=== PATIENT | female | born 1945 | race Caucasian/White ===

== ENCOUNTER → 2017-03-07 | Outpatient (CLI) | payer MEDICARE ==
[~2017-03-07] MED LIST: AMLODIPINE BESYL5 MG PO; LIPITOR PO; LOSARTAN PO; LOVAZA1 G PO; METFORMIN HCL500 M1 PO; NORCO1 TAB 10/3 PO; ZOFRAN ODT4 MG/UDTAB PO
--- NOTE | ~2017-03-07 | CR170 ---
[facility] A Service [facility] RADIOLOGY TEXT RESULTS PATIENT: HOMER BAUTISTA LOCATION: [facility] : 49 UNIT #: [id number] AGE: [address]: Cammy Workman MD SEX: F ORDER DR: [id number] [place] [id number] O MR#: [id number] Acc #: [id number] NAME: HOMER BAUTISTA : 1945 SEX: F STUDY DATE/TIME: 03/07/2017 10:44 UNIT: SRA ROOM: STUDY DESCRIPTION: CR Knee 2 Views Rt Attending Physician: Cammy Workman M.D. Referring Physician: Cammy Workman M.D. Ordering Physician: Cammy Workman M.D. Primary Care Physician: Cammy Workman M.D. MEDICAL IMAGING REPORT This report is preliminary unless electronic signature is present. EXAM Right knee 03/07/2017 HISTORY 71-year-old female with right knee pain for 2-3 months, worsening over last 1 week. No specific injury. COMPARISON None FINDINGS 2 views of the right knee demonstrate no acute fracture or dislocation. No joint effusion. Mild degenerative changes of the patellofemoral joint. Medial and lateral compartment joint spaces are maintained. Soft tissues are unremarkable. IMPRESSION 1. No acute fracture or dislocation. 2. Mild patellofemoral arthrosis. 3. If clinical symptoms persist, consider further evaluation with nonemergent right knee MRI. Dictated by... Cristóbal Singh M.D. THIS IS AN ELECTRONICALLY VERIFIED REPORT Cristóbal Singh M.D. at 03/07/2017 6:38 PM Leonardo TD: 03/07/2017 18:31 JOB #: [id number] [facility] A Service [facility] RADIOLOGY TEXT RESULTS PATIENT: HOMER BAUTISTA LOCATION: [facility] : 49 UNIT #: [id number] AGE: [address]: Cammy Workman MD SEX: F ORDER DR: MEDICAL IMAGING REPORT Page 1 of 1
== END | disposition home or self-care (01) ==
LOC: SRAD 10:33
DX: M25.561 Pain in right knee (principal); M17.11 Unilateral primary osteoarthritis, right knee
CPT/HCPCS: 73560

== ENCOUNTER → 2017-05-08 | Outpatient (CLI) | payer MEDICARE ==
--- NOTE | ~2017-05-08 | BD1 ---
[facility] A Service of [facility] & [facility] RADIOLOGY TEXT RESULTS PATIENT: HOMER BAUTISTA LOCATION: [facility] : 49 UNIT #: [id number] AGE: [address]: Cammy Workman MD SEX: F ORDER DR: [id number] [place] [id number] O MR#: [id number] Acc #: [id number] NAME: HOMER BAUTISTA : 1945 SEX: F STUDY DATE/TIME: 05/08/2017 10:18 UNIT: [facility] ROOM: STUDY DESCRIPTION: Dexa Bone Dens 1+ Site Attending Physician: Cammy Workman M.D. Referring Physician: Cammy Workman M.D. Ordering Physician: Cammy Workman M.D. Primary Care Physician: Cammy Workman M.D. MEDICAL IMAGING REPORT This report is preliminary unless electronic signature is present. EXAM Bone density spine and hip, 05/08/2017 HISTORY Screening. Prior wrist bone fracture. Nonsmoker. FINDINGS Bone density scanning performed upper four lumbar vertebral segments and both proximal femurs [age]-year-old 173 pound female COMPARISON 11/27/2009 FINDINGS Bone mineral density upper four lumbar vertebral segments 1.235 g/cm2 for T-score 0.5 standard deviations above the mean and Z-score 1.7 standard deviations above the mean. Compared to 11/27/2009, there has been a statistically significant 9.7% increase in bone mineral density in this region. In the proximal left femur the total bone mineral density is 0.886 g/cm2 for T-score 1.0 standard deviation below mean for reference population normal young individuals and Z-score 0.2 standard deviations above the mean for age-matched population. In the left femoral neck specifically the bone mineral density is 0.820 g/cm2 for T-score 1.6 standard deviations below mean for reference population normal young individuals and Z-score 0.2 standard deviations below mean for age-matched population. In the proximal right femur the total bone mineral density is 0.922 g/cm2 for a T-score of 0.7 standard deviation below mean for reference population normal young individuals and Z-score 0.4 standard deviations above the mean for age-matched population. In the right femoral neck specifically the bone mineral density is 0.840 g/cm2 for T-score 1.4 [facility] A Service of [facility] & [facility] RADIOLOGY TEXT RESULTS PATIENT: HOMER BAUTISTA LOCATION: [facility] : 49 UNIT #: [id number] AGE: [address]: Cammy Workman MD SEX: F ORDER DR: standard deviation below mean for reference population normal young individuals and Z-score 0 standard deviations from the mean for an age-matched population. Using total bone mineral density in the bilateral proximal femurs there has been a statistically significant 4.3% decrease in left femoral bone mineral density. On prior examination 2009, the right femur was not evaluated. IMPRESSION 1. Osteopenia in the left femoral neck. Patient felt to be at increased risk for fracture. Treatment options may be considered. Continued surveillance is recommended. 2. Statistically significant increase in overall bone mineral density upper 4 lumbar vertebral segments compared to 2010. Statistically significant decrease in proximal left femoral bone mineral density compared to 2010. See complete data in body of report above. Dictated by... James Guajardo M.D. THIS IS AN ELECTRONICALLY VERIFIED REPORT James Guajardo M.D. at 05/10/2017 11:34 AM Seema TD: 05/09/2017 05:09 JOB #: [id number] MEDICAL IMAGING REPORT Page 1 of 1
--- NOTE | ~2017-05-08 | MY11 ---
[facility] A Service of [facility] RADIOLOGY TEXT RESULTS PATIENT: HOMER BAUTISTA LOCATION: [facility] : 49 UNIT #: [id number] AGE: [address]: Cammy Workman MD SEX: F ORDER DR: [id number] [address] [address] [id number] O MR#: [id number] Acc #: [id number] NAME: HOMER BAUTISTA : 1945 SEX: F STUDY DATE/TIME: 05/08/2017 10:47 UNIT: [facility] ROOM: STUDY DESCRIPTION: MY Mammogram Screening Dig Abel Attending Physician: Cammy Workman M.D. Referring Physician: Cammy Workman M.D. Ordering Physician: Cammy Workman M.D. Primary Care Physician: Cammy Workman M.D. MEDICAL IMAGING REPORT This report is preliminary unless electronic signature is present. EXAM Digital screening mammogram 05/08/2017 HISTORY 71-year-old woman, no risk elevation. Annual screening. COMPARISON STUDIES Comparison mammograms date to 10/17/2008 with most recent 04/22/2016. FINDINGS Digital imaging of each breast was completed utilizing screening protocol. Review includes FDA-approved CAD device. Breast parenchyma is predominantly fatty replaced. Subareolar duct prominence is noted in each breast, slightly dominant on the left. There are occasional subcentimeter nodules in each breast with again, some dominance in the left breast. Findings are stable. I see no suspicious mass characteristics. There are no interval occurring microcalcifications and no architectural deformity. IMPRESSION Stable benign mammogram. Annual screening recommended. BIRADS: 2 Benign Finding. Patients over the age of 40 are entered into a reminder system with target due date for the next mammogram. A result letter will also be sent to the patient. Dictated by... Aneudy Rea M.D. THIS IS AN ELECTRONICALLY VERIFIED REPORT [facility] A Service of [facility] RADIOLOGY TEXT RESULTS PATIENT: HOMER BAUTISTA [facility] [id number] : 49 UNIT #: [id number] AGE: [address]: Cammy Workman MD SEX: F ORDER DR: Aneudy Rea M.D. at 05/10/2017 8:06 AM JBB/pcl TD: 05/08/2017 18:23 JOB #: [id number] MEDICAL IMAGING REPORT Page 1 of 1
== END | disposition home or self-care (01) ==
LOC: SMAM 04-10 09:45
DX: Z12.31 Encounter for screening mammogram for malignant neoplasm of breast (principal); Z13.820 Encounter for screening for osteoporosis; Z78.0 Asymptomatic menopausal state; M85.852 Other specified disorders of bone density and structure, left thigh
CPT/HCPCS: 77080; G0202